=== PATIENT | female | born 1990 | race American Indian/Alaskan Native ===

== ENCOUNTER 2018-12-21 14:34 | Outpatient (CLI) | payer MEDICAID ==
[2018-12-21] MEDS ORDERED: LACTATED RINGERS 500 ML IV ONE (14:49)
[2018-12-21] MEDS ORDERED: ZOFRAN IV ONE (15:16)
[2018-12-21 15:29] LABS: Bacteria,Urine 1+ /HPF (Negative); Bilirubin,Urine NEG (Negative); Blood,Urine NEG (Negative); Color,Urine Yellow (Yellow); Protein,Urine <15 mg/dL mg/dL (Negative); Urobilinogen,Urine < 2.0 mg/dL (<2.0)
[2018-12-21 15:49] LABS: Hematocrit 34.5 % (30.3-42.9); Hemoglobin 11.2 gm/dl (10.1-14.3); Mean Corpuscular HGB Conc 33 % (30-34); Mean Corpuscular Volume 86 fl (79-97); Platelet Count 214 K/mm3 (140-440); Red Cell Distribution Width 13.7 % (13.2-15.2)
[2018-12-21 16:07] LABS: Alanine Aminotransferase 9 units/L (7-56); Uric Acid 5.1 mg/dL (3.5-7.6)
[2018-12-21] MEDS ORDERED: TYLENOL PO PRN ×2 (16:12→17:32)
[2018-12-21] MEDS ORDERED: COLACE PO PRN (16:12)
[2018-12-21] MEDS ORDERED: ALUM-MAG HYDROX-SIMETH 200-200-20MG/5ML PO PRN (16:12)
--- NOTE | 2018-12-21 16:18 | Event Note ---
Date: 12/21/18 patient came in to triage w/o care, c/o feeling like her b/p is high. pre-e labs normal, b/p 130-150/70-80's. Will admit for observation and 24h urine collection. Dr. Purdy consulted.
[2018-12-21 16:59] LABS: Amphetamine Screen,Urine PRESUMPTIVE NEGATIVE; Benzodiazepines Screen,Urine PRESUMPTIVE NEGATIVE; Cocaine Screen,Urine PRESUMPTIVE NEGATIVE; Methadone Screen,Urine PRESUMPTIVE NEGATIVE; Opiate Screen,Urine PRESUMPTIVE NEGATIVE
[2018-12-21] MEDS ORDERED: LACTATED RINGERS 1,000 ML IV SCH ×2 (17:00)
[2018-12-21 17:12] LABS: Cannabinoid Screen,Urine PRESUMPTIVE POSITIVE
[2018-12-21 17:42] VITALS: BP 128/75
--- NOTE | 2018-12-21 18:23 | Event Note ---
Date: 12/21/18 s/w patient by phone d/t possible leaving against medical advice. Explained possible preeclampsia and PTL. Emphasized the importance of admission to complete her assessment. Cervix 12/15/3 per Sonali JENSEN. Preeclampsia explained along with risk for seizure, stroke, brain damage or for her and/or the fetus emphasized, also discussed delivery and complications. She states hospitals are against her beliefs and [facility]. care encouraged. Explained US report is pending at this time. States she does not know what she wants to do at this time. Again encouraged admission to evaluate for preeclampsia and PTL.
--- NOTE | 2018-12-22 06:55 | Ultrasound Report ---
FINAL REPORT EXAM: OB US >= 14 WKS SNGL FETUS HISTORY: NO CARE COMPARISONS: None. FINDINGS: Transabdominal limited 3rd trimester grayscale, color Doppler and M-mode ultrasound A single living intrauterine is present with recorded cardiac activity of 177 beats per min wainwright in cephalic presentation with subjectively normal amniotic fluid volume and amniotic fluid index of approximately 14 cm. The placenta is anterior and homogeneous in appearance. The cervix is not wel l visualized. Biparietal diameter is 8.3 cm Head circumference is 29.9 cm Abdominal circumference is 28 cm Femoral length is 6.1 cm Composite of biometric measurements results estimated gestational age of 32 weeks 4 days and de livery date of 02/11/2019. Limited/partially visualized portions of the anatomy are grossly unremarkable. The skin line ov erlying the spine as well as the brain are not optimally visualized. IMPRESSION: Single living intrauterine with estimated gestational age of 32 weeks 4 days corresponding to delivery date of 02/11/2019. Limited evaluation of the anatomy is grossly unremarkable.
[2018-12-22] MEDS ORDERED: PRENATAL VITAMIN PO SCH (10:00)
[2018-12-22 23:11] LABS: Creatinine,Urine 98.3 mg/dL (0.1-20.0)
[2018-12-22 23:13] LABS: Patient Weight,Urine 167.6 lbs
== END 2018-12-21 18:49 | disposition left against medical advice (07) ==
LOC: TRG 14:34
PROVIDERS: ATTEND Obstetrics & Gynecology
DX: O47.03 False labor before 37 completed weeks of gestation, third trimester (principal); O99.513 Diseases of the respiratory system complicating pregnancy, third trimester; J45.909 Unspecified asthma, uncomplicated; Z3A.33 33 weeks gestation of pregnancy
CPT/HCPCS: 36415; 76805; 80307; 81001; 82565; 83615; 84450; 84460; 84550; 85027; 86850; 86900; 86901; J2405; J7120

== ENCOUNTER 2018-12-21 19:32 | Inpatient (IN) | payer MEDICAID ==
[2018-12-21] MEDS ORDERED: LACTATED RINGERS 1,000 ML ONE (19:59)
[2018-12-21] MEDS ORDERED: COLACE PO PRN (20:29)
[2018-12-21] MEDS ORDERED: TYLENOL PO PRN (20:29)
--- NOTE | 2018-12-21 20:40 | Event Note ---
Date: 12/21/18 Pt returned to L&D after signing out AMA. Pt states she feels "dehydrated and wants IVF." She has continued to have nausea and vomiting. called patient and discussed patient's compliance with care. She states she will allow the nurses to monitor baby, IVF, medication for nausea and will complete 24h urine. Patient states she will stay in the hospital and not leave again. She reports leaving on previous admission due to medical care being "against her culture." Admission orders in EMR. Labs drawn same day but documented under her previous admission.Dr. Purdy is aware of patient's return. +THC noted on UDS. Will continue to monitor.
[2018-12-21] MEDS ORDERED: PHENERGAN PR PRN (20:41)
[2018-12-21] MEDS ORDERED: LACTATED RINGERS 1,000 ML IV SCH (21:00)
[2018-12-21] MEDS ORDERED: AMBIEN PO PRN (21:42)
[2018-12-21] MEDS: LACTATED RINGERS 1,000 ML IV SCH (22:45)
[2018-12-21] MEDS: ZOFRAN IV PRN (23:47)
[2018-12-22] MEDS: ZOFRAN IV PRN (05:06)
[2018-12-22] MEDS: LACTATED RINGERS 1,000 ML IV SCH (05:29)
--- NOTE | 2018-12-22 07:37 | History and Physical Report ---
History of Present Illness Date of examination: 12/22/18 Date of admission: 12/21/18 20:57 Chief complaint: N/V, BALDWIN, elevated BP's History of present illness: See previous notes. Patient states she started having nausea and vomiting yesterday morning with diarrhea, she took her BP and was found to 165/80. On arrival BP's were noted to be 130-150/70-80's. She was admitted to evaluate for Preeclampsia Past History Past Medical History: no pertinent history Past Surgical History: no surgical history DIRECTOR IT History: trichomonas Family/Genetic History: none Social history: other (marijuana) - Obstetrical History : 5 Spontaneous Abortions: 1 Induced : 3 Medications and Allergies Allergies Allergy/AdvReac Type Severity Reaction Status Date / Time aspirin Allergy Hives Verified 12/21/18 22:39 ibuprofen [From Motrin] Allergy Hives Verified 12/11/15 02:21 Penicillins Allergy Hives Verified 12/11/15 02:20 Home Medications Medication Instructions Recorded Confirmed Last Taken Type No Known Home Medications [No 12/21/18 12/21/18 Unknown History Reported Home Medications] Active Meds: Active Medications Acetaminophen (Tylenol) 650 mg PO Q4H PRN PRN Reason: Pain MILD(1-3)/Fever >100.5/BALDWIN Docusate Sodium (Colace) 100 mg PO Q12H PRN PRN Reason: Constipation Lactated Ringer's (Lactated Ringers) 1,000 mls @ 125 mls/hr IV DIRECT FLORENCE Last Admin: 12/22/18 05:29 Dose: 125 mls/hr Documented by: Multivitamins/Iron/Calcium ( Vitamin) 1 each PO QDAY FLORENCE Ondansetron HCl (Zofran) 4 mg IV Q6H PRN PRN Reason: Nausea And Vomiting Last Admin: 12/22/18 05:06 Dose: 4 mg Documented by: Promethazine HCl (Phenergan) [address] Q6H PRN PRN Reason: Nausea And Vomiting Zolpidem Tartrate (Ambien) 10 mg PO QHS PRN PRN Reason: Insomnia Review of Systems All systems: negative Gastrointestinal: abdominal pain, nausea, vomiting, diarrhea - Vital Signs Vital signs: Vital Signs Pulse BP 86 137/73 12/21/18 20:05 12/21/18 20:05 Temp Pulse Resp BP Pulse Ox 98.8 F 98 H 18 118/73 97 12/22/18 03:54 12/22/18 05:07 12/22/18 03:54 12/22/18 05:07 12/22/18 05:06 - Physical Exam Breasts: Positive: deferred Cardiovascular: Regular rate Lungs: Positive: Clear to auscultation, Normal air movement Abdomen: Positive: normal appearance, soft. Negative: tenderness, guarding Uterus: Positive: enlarged. Negative: tender Extremities: Positive: edema (2+) Deep Tendon Reflex Grade: Dull/Diminished +1 - Obstetrical FHR: other (pending, patient refused monitoring last pm) Results All other labs normal. Ultrasound: report reviewed Assessment and Plan - Patient Problems (1) Drug use during Current Visit: Yes Status: Acute (2) Elevated blood pressure reading Current Visit: Yes Status: Acute Plan to address problem: complete 24hour urine (3) Nausea and vomiting during Current Visit: Yes Status: Acute Plan to address problem: Gastroeneritis, mostly viral, denies recent travel IVF hydration Antiemetics (4) No care in current in third trimester Current Visit: Yes Status: Acute Plan to address problem: encouraged PNC
--- NOTE | 2018-12-22 07:50 | Progress Note ---
Assessment and Plan Patient resting in bed, RN at bedside. Patient reports feeling a little better since admission. 24 hour urine still in progress. Patient is currently being monitored via external TOCO and US, RN adjusting US. Pt reports frequent diarrhea and continued nausea, but that the vomiting has decreased. Pt notified of new orders for reglan, D5LR, and stool culture to be sent per Dr. Purdy. Patient verbalizes understanding of current POC and agrees. Patient denies any contractions, vaginal bleeding, or leaking of fluid vaginally. PIH assessment WNL. Pt encouraged to ask questions, all questions answered. Will continue to monitor and continue current POC. Subjective - Subjective Date of service: 12/22/18 Patient reports: movement normal, no new complaints, no loss of fluid, no vaginal bleeding, no contractions Objective - Vital Signs Vital Signs: Vital Signs - 12hr 12/21/18 12/21/18 12/21/18 20:05 21:20 21:49 Temperature 98.8 F Pulse Rate 86 86 105 H Respiratory 20 Rate Blood Pressure 137/73 Blood Pressure 137/73 [Left] O2 Sat by Pulse 98 Oximetry 12/21/18 12/21/18 12/21/18 21:54 21:59 22:04 Temperature Pulse Rate 100 H 102 H 100 H Respiratory Rate Blood Pressure Blood Pressure [Left] O2 Sat by Pulse 96 97 97 Oximetry 12/21/18 12/21/18 12/21/18 22:09 22:18 22:33 Temperature Pulse Rate 103 H 103 H 84 Respiratory Rate Blood Pressure Blood Pressure [Left] O2 Sat by Pulse 97 98 99 Oximetry 12/21/18 12/21/18 12/21/18 22:35 22:38 22:42 Temperature 99.8 F H Pulse Rate 97 H 97 H Respiratory 18 Rate Blood Pressure Blood Pressure [Left] O2 Sat by Pulse 99 86 Oximetry 12/21/18 12/21/18 12/21/18 22:44 22:49 22:54 Temperature Pulse Rate 87 91 H 102 H Respiratory Rate Blood Pressure 132/72 Blood Pressure [Left] O2 Sat by Pulse 95 99 98 Oximetry 12/21/18 12/21/18 12/21/18 22:59 23:04 23:13 Temperature Pulse Rate 92 H 106 H 99 H Respiratory Rate Blood Pressure Blood Pressure [Left] O2 Sat by Pulse 99 100 100 Oximetry 0212/21/18 12/21/18 23:18 23:23 23:28 Temperature Pulse Rate 99 H 118 H 98 H Respiratory Rate Blood Pressure Blood Pressure [Left] O2 Sat by Pulse 100 99 99 Oximetry 12/21/18 12/21/18 12/21/18 23:44 23:46 23:49 Temperature Pulse Rate 92 H 93 H 85 Respiratory Rate Blood Pressure 122/63 Blood Pressure [Left] O2 Sat by Pulse 100 100 Oximetry 12/21/18 12/21/18 12/22/18 23:54 23:59 00:04 Temperature Pulse Rate 96 H 97 H 95 H Respiratory Rate Blood Pressure Blood Pressure [Left] O2 Sat by Pulse 100 99 99 Oximetry 12/22/18 12/22/18 12/22/18 00:09 00:14 00:20 Temperature Pulse Rate 87 95 H 107 H Respiratory Rate Blood Pressure Blood Pressure [Left] O2 Sat by Pulse 100 99 100 Oximetry 12/22/18 12/22/18 12/22/18 00:25 00:30 00:32 Temperature Pulse Rate 89 91 H Respiratory Rate Blood Pressure Blood Pressure [Left] O2 Sat by Pulse 100 100 94 Oximetry 12/22/18 12/22/18 12/22/18 00:48 00:53 00:58 Temperature Pulse Rate 98 H 92 H 95 H Respiratory Rate Blood Pressure Blood Pressure [Left] O2 Sat by Pulse 100 100 99 Oximetry 12/22/18 12/22/18 12/22/18 01:03 01:08 01:13 Temperature Pulse Rate 87 91 H 93 H Respiratory Rate Blood Pressure Blood Pressure [Left] O2 Sat by Pulse 100 100 99 Oximetry 12/22/18 12/22/18 12/22/18 01:18 01:23 01:28 Temperature Pulse Rate 92 H 105 H 92 H Respiratory Rate Blood Pressure Blood Pressure [Left] O2 Sat by Pulse 100 100 99 Oximetry 12/22/18 12/22/18 12/22/18 01:33 01:38 01:43 Temperature Pulse Rate 94 H 92 H 104 H Respiratory Rate Blood Pressure Blood Pressure [Left] O2 Sat by Pulse 98 99 99 Oximetry 12/22/18 12/22/18 12/22/18 01:48 01:53 02:05 Temperature Pulse Rate 97 H 102 H 88 Respiratory Rate Blood Pressure 125/82 Blood Pressure [Left] O2 Sat by Pulse 100 99 Oximetry 12/22/18 12/22/18 12/22/18 02:45 03:52 03:54 Temperature 98.8 F Pulse Rate 90 100 H Respiratory 18 Rate Blood Pressure 116/59 115/57 Blood Pressure [Left] O2 Sat by Pulse Oximetry 12/22/18 12/22/18 12/22/18 05:06 05:07 07:36 Temperature Pulse Rate 102 H 98 H 102 H Respiratory Rate Blood Pressure 118/73 116/79 Blood Pressure [Left] O2 Sat by Pulse 97 Oximetry - Exam Breasts: normal Cardiovascular: Regular rate, Normal S1, Normal S2 Lungs: Clear to auscultation Abdomen: Present: normal appearance, soft. Absent: distention, tenderness Uterus: Present: normal FHR: auscultation normal Uterine Contraction Pattern: Absent Extremities: normal Deep Tendon Reflex Grade: Normal +2
[2018-12-22] MEDS ORDERED: D5LR 1,000 ML IV SCH (08:00)
[2018-12-22] MEDS ORDERED: REGLAN IV PRN (08:00)
[2018-12-22] MEDS: D5LR 1,000 ML IV SCH ×2 (08:01→18:08)
[2018-12-22] MEDS ORDERED: REGLAN PO PRN (08:30)
[2018-12-22] MEDS ORDERED: PRENATAL VITAMIN PO SCH (10:00)
--- NOTE | 2018-12-23 07:50 | Discharge Summary ---
Providers - Providers Date of Admission: 12/21/18 20:57 Date of discharge: 12/23/18 (desires d/c home) Attending physician: KYLE CASTELLANOS 12/21/18 Consult to Case Management [CONS] Routine Services Needed at Discharge: Correspondence Representative Comment:: no care, third trimester Primary care physician: KYLE CASTELLANOS Hospitalization Reason for admission: nausea/vomiting, elevated b/p reading Condition: Good Pertinent studies: pre-e labs normal, 24h urine 260. UDS + THC Hospital course: IV hydration and control of nausea and vomiting, likely stomach virus, complicated by no care and pt's lack of cooperation. Disposition: DC-01 TO HOME OR SELFCARE - Discharge Diagnoses (1) Drug use during Status: Acute (2) Elevated blood pressure reading Status: Acute Comment: normal pre-e labs, b/p readings now 115-135/50's-70's over the last 24hrs. (3) Nausea and vomiting during Status: Acute Comment: resolved (4) No care in current in third trimester Status: Acute Comment: pt states she has first appointment with research laboratory specialist 01/09/19 (states she retained her services last week but has not been seen). She does not know her name or where her office/clinic is located. Core Measure Documentation - Palliative Care Palliative Care/ Comfort Measures: Not Applicable - Core Measures Any of the following diagnoses?: none Exam - Constitutional Vitals: Temp Pulse Resp BP Pulse Ox 98.1 F 77 18 117/67 100 12/23/18 06:13 12/23/18 06:13 12/23/18 06:13 12/23/18 06:13 12/23/18 06:13 General appearance: Present: no acute distress, well-nourished - EENT Eyes: Present: PERRL ENT: hearing intact, clear oral mucosa - Neck Neck: Present: supple, normal ROM - Respiratory Respiratory effort: normal Respiratory: bilateral: CTA - Cardiovascular Heart Sounds: Present: S1 & S2. Absent: rub, click - Extremities Extremities: pulses symmetrical, No edema Peripheral Pulses: within normal limits - Abdominal General gastrointestinal: Present: soft, non-tender, non-distended, normal bowel sounds Female genitourinary: Present: normal - Integumentary Integumentary: Present: clear, warm, dry - Musculoskeletal Musculoskeletal: gait normal, strength equal bilaterally - Psychiatric Psychiatric: appropriate mood/affect, intact judgment & insight - Neurologic Neurologic: CNII-XII intact, moves all extremities Plan Activity: no restrictions Diet: regular Follow up with: KYLE CASTELLANOS MD [Primary Care Provider] - 7 Days (Please call [phone] to make appointment for routine care.)
[2018-12-23 07:54] VITALS: BP 127/71
== END 2018-12-23 08:55 | disposition home or self-care (01) | DRG 781 ==
LOC: TRG 19:32 → LD 19:59 → TRG 20:57 → LD 20:57
PROVIDERS: ADMIT Obstetrics & Gynecology; ATTEND Obstetrics & Gynecology
DX: O99.323 Drug use complicating pregnancy, third trimester (principal); O21.9 Vomiting of pregnancy, unspecified; F12.90 Cannabis use, unspecified, uncomplicated; O99.613 Diseases of the digestive system complicating pregnancy, third trimester; K52.9 Noninfective gastroenteritis and colitis, unspecified; Z3A.33 33 weeks gestation of pregnancy; Z88.6 Allergy status to analgesic agent; Z88.0 Allergy status to penicillin
CPT/HCPCS: 36415; 76805; 80307; 81001; 82565; 82570; 82575; 83615; 84156; 84450; 84460; 84550; 85027; 86850; 86900; 86901; 87045; G0378; J2405; J2765; J7120; J7121

== ENCOUNTER 2019-06-29 22:28 | Emergency (ER) | payer MEDICAID ==
[2019-06-29 22:50] VITALS: BP 120/76
[2019-06-29] MEDS ORDERED: XYLOCAINE 2% INFILTRATI ONE ×2 (23:30→23:33)
[2019-06-30 00:02] LABS: HCG Qualitative,Urine Negative (Negative)
--- NOTE | 2019-06-30 00:16 | Emergency Department Report ---
ED Laceration HPI - HPI Chief Complaint: Wound/Laceration Stated Complaint: FALL/HEAD LAC Time Seen by Provider: 06/29/19 23:12 Occurred When: Today Location: Head Severity: mild Tetanus Status: Up to Date Laceration Symptoms: Yes Pain, No Foreign Body Sensation, No Weakness Other History: Patient is a 28-year-old healthy looking female who presents to ED complaining of facial lot to the catholic. Patient states that earlier today she was walking and accidentally tripped and fell and hit her head on concrete. She denies loss of consciousness but is also complaining of right-sided rib pain and pain with inhalation. Patient denies nausea, vomiting, dizziness or headache ED Review of Systems ROS: Stated complaint: FALL/HEAD LAC Other details as noted in HPI Comment: All other systems reviewed and negative ED Past Medical Hx - Past Medical History Hx Hypertension: No Hx Congestive Heart Failure: No Hx Diabetes: No Hx Deep Vein Thrombosis: No Hx Renal Disease: No Hx Sickle Cell Disease: No Hx Seizures: No Hx Asthma: Yes (as a child) Hx COPD: No Hx HIV: No - Surgical History Additional Surgical History: 3X - Social History Smoking Status: Never Smoker Substance Use Type: None - Medications Home Medications: Home Medications Medication Instructions Recorded Confirmed Last Taken Type No Known Home Medications [No 12/21/18 12/21/18 Unknown History Reported Home Medications] Laceration Physical Exam - Exam General: Vital signs noted. No distress. Alert and acting appropriately. Wound Length (cm): 1 Laceration Location: Head Laceration Exam: Yes Normal Distal CMS, No Foreign Body, No Exposed Tendon, Vessel, or Nerve, No Tendon Injury ED Course Vital Signs 06/29/19 22:42 Temperature 98.1 F Pulse Rate 82 Respiratory 18 Rate Blood Pressure 120/76 O2 Sat by Pulse 100 Oximetry - Laceration /Wound Repair Left Face Wound Location: face Wound Length (cm): 1 Wound's Depth, Shape: superficial, linear Wound Explored: clean Betadine Prep?: Yes Anesthesia: 1% Lidocaine Volume Anesthetic (ccs): 1 Wound Repaired With: sutures, Steri-strips Suture Size/Type: 4:0, proline Sterile Dressing Applied?: Yes ED Medical Decision Making - Radiology Data Radiology results: report reviewed, image reviewed CT head without contrast INDICATION : FACIAL/HEAD PAIN FROM TRAUMATIC FALL. TECHNIQUE: Axial imaging performed from the skull apex through the skull base without the use of contrast. All CT scans at this location are performed using CT dose reduction for ALARA by means of automated exposure control. COMPARISON: None FINDINGS: Parenchyma: No acute intracranial hemorrhage or parenchymal abnormality. Ventricles: Ventricles are normal in size and appear symmetric. Soft tissues: Soft tissues including the orbits appear normal. Bones: No acute osseous abnormality. Sinuses: Sinuses and mastoid air cells are clear. IMPRESSION: No acute abnormality. Signer Name: Ata Butts MD Signed: 06/30/2019 12:15 AM Workstation Name: [id number] Transcribed By: ROBERT Dictated By: Ata Butts MD Electronically Authenticated By: Ata Butts MD Signed Date/Time: 06/30/[address] chest without contrast INDICATION : Acute generalized right rib pain. TECHNIQUE: Axial imaging performed through the chest without the use of intravenous contrast. All CT scans at this location are performed using CT dose reduction for ALARA by means of automated exposure control. COMPARISON: None FINDINGS: No acute osseous abnormality identified. No significant DJD in the spine. The heart and great vessels appear unremarkable with no pathologic mediastinal adenopathy. Limited imaging of the upper abdomen shows nothing acute. The lungs are clear. IMPRESSION: No acute abnormality. Clear lungs. Signer Name: Ata Butts MD Signed: 06/30/2019 12:17 AM Workstation Name: [id number] Transcribed By: ROBERT Dictated By: Ata Butts MD Electronically Authenticated By: Ata Butts MD Signed Date/Time: 06/30/19 0017 - Medical Decision Making 28-year-old female presents with a laceration from fall injury. CT of the facial bones, head and chest shows no acute fracture or injuries History report above Laceration was repaired without any complication. Patient tolerated procedure well Discuss with patient to return to the 7-10 days for suture removal. Vital signs are normal she is in no acute distress. Critical care attestation.: If time is entered above; I have spent that time in minutes in the direct care of this critically ill patient, excluding procedure time. ED Disposition Clinical Impression: Fall injury while running, Forehead laceration Disposition: - TO HOME OR SELFCARE Is pt being admited?: No Does the pt Need Aspirin: No Condition: Stable Instructions: Suture Care (ED), Laceration (ED) Additional Instructions: Make sure to follow up with the primary care physician as discussed. Return to ED in 7-10 days for suture removal If you have any worsening symptoms or develop new symptoms please return to ED immediately. Referrals: TED PAYNE MD [Primary Care Provider] - 3-5 Days Forms: Work/School Release Form(ED) Time of Disposition: 02:00
--- NOTE | 2019-06-30 00:20 | Cat Scan Report ---
CT head without contrast INDICATION : FACIAL/HEAD PAIN FROM TRAUMATIC FALL. TECHNIQUE: Axial imaging performed from the skull apex through the skull base without the use of con trast. All CT scans at this location are performed using CT dose reduction for ALARA by means of aut omated exposure control. COMPARISON: None FINDINGS: Parenchyma: No acute intracranial hemorrhage or parenchymal abnormality. Ventricles: Ventricles are normal in size and appear symmetric. Soft tissues: Soft tissues including the orbits appear normal. Bones: No acute osseous abnormality. Sinuses: Sinuses and mastoid air cells are clear. IMPRESSION: No acute abnormality. Signer Name: Aat Butts MD Signed: 06/30/2019 12:15 AM Workstation Name: [id number]
--- NOTE | 2019-06-30 00:21 | Cat Scan Report ---
CT chest without contrast INDICATION : Acute generalized right rib pain. TECHNIQUE: Axial imaging performed through the chest without the use of intravenous contrast. All C T scans at this location are performed using CT dose reduction for ALARA by means of automated exposu re control. COMPARISON: None FINDINGS: No acute osseous abnormality identified. No significant DJD in the spine. The heart and great vessels appear unremarkable with no pathologic mediastinal adenopathy. Limited im aging of the upper abdomen shows nothing acute. The lungs are clear. IMPRESSION: No acute abnormality. Clear lungs. Signer Name: Ata Butts MD Signed: 06/30/2019 12:17 AM Workstation Name: [id number]
--- NOTE | 2019-06-30 00:35 | Cat Scan Report ---
CT maxillofacial without contrast INDICATION : FACIAL/HEAD PAIN FROM TRAUMATIC FALL. TECHNIQUE: Axial imaging performed through the face with reconstructed images also reviewed. All CT scans at this location are performed using CT dose reduction for ALARA by means of automated exposur e control. COMPARISON: CT head from today FINDINGS: There is a small soft tissue laceration over the left lateral periorbital region with asso ciated mild soft tissue swelling but no radiopaque foreign body is identified. There is likewise no a cute fracture. Sinuses and mastoid air cells are clear. The globes are intact. IMPRESSION: Left periorbital soft tissue injury as above with no acute fracture identified. Signer Name: Ata Butts MD Signed: 06/30/2019 12:30 AM Workstation Name: [id number]
== END 2019-06-30 02:15 | disposition home or self-care (01) ==
LOC: ED 22:28
DX: S01.81XA Laceration without foreign body of other part of head, initial encounter (principal); R07.81 Pleurodynia; J45.909 Unspecified asthma, uncomplicated; W01.0XXA Fall on same level from slipping, tripping and stumbling without subsequent striking against object, initial encounter; Y93.89 Activity, other specified; Y92.89 Other specified places as the place of occurrence of the external cause; Y99.8 Other external cause status
CPT/HCPCS: 70450; 70486; 71250; 81025

== ENCOUNTER 2019-07-05 14:52 | Emergency (ER) | payer MEDICAID ==
[2019-07-05 14:59] VITALS: BP 108/53
--- NOTE | 2019-07-05 15:11 | Emergency Department Report ---
Suture/Staple Removal - [facility] Chief Complaint: Laceration/Recheck/Suture Stated Complaint: SUTURE REMOVAL Time Seen by Provider: 07/05/19 15:11 When Sutures or Kaila Placed: 5-7 Days Ago Wound Location: left eyebrow ED Review of Systems ROS: Stated complaint: SUTURE REMOVAL Other details as noted in HPI Constitutional: denies: chills, fever Eyes: denies: eye pain, eye discharge, vision change ENT: denies: ear pain, throat pain Respiratory: denies: cough, shortness of breath, wheezing Cardiovascular: denies: chest pain, palpitations Endocrine: no symptoms reported Gastrointestinal: denies: abdominal pain, nausea, diarrhea Genitourinary: denies: urgency, dysuria, discharge Musculoskeletal: denies: back pain, joint swelling, arthralgia Skin: denies: rash, lesions Neurological: denies: headache, weakness, paresthesias Psychiatric: denies: anxiety, depression Hematological/Lymphatic: denies: easy bleeding, easy bruising ED Past Medical Hx - Past Medical History Hx Hypertension: No Hx Congestive Heart Failure: No Hx Diabetes: No Hx Deep Vein Thrombosis: No Hx Renal Disease: No Hx Sickle Cell Disease: No Hx Seizures: No Hx Asthma: Yes (as a child) Hx COPD: No Hx HIV: No - Surgical History Additional Surgical History: 3X - Social History Smoking Status: Never Smoker Substance Use Type: None - Medications Home Medications: Home Medications Medication Instructions Recorded Confirmed Last Taken Type No Known Home Medications [No 12/21/18 12/21/18 Unknown History Reported Home Medications] Suture Removal Exam - Exam General: Vital signs noted. No distress. Alert and acting appropriately. Wound: No Pathologic Erythema, No Tenderness, No Drainage, No Pus, No Wound Dehiscence Other Systems: All other systems reviewed and are unremarkable. ED Course Vital Signs 07/05/19 14:58 Temperature 98.0 F Pulse Rate 68 Respiratory 16 Rate Blood Pressure 108/53 O2 Sat by Pulse 100 Oximetry - Reevaluation(s) Reevaluation #1: 07/05/19 15:17 Patient is speaking in full sentences with no signs of distress noted. ED Recheck MDM - Medical Decision Making Running suture removed. Patient tolerated well. Well healing. Patient was instructed to Follow-up with a primary care doctor in 3-5 days or if symptoms worsen and continue return to emergency room as soon as possible. At time of discharge, the patient does not seem toxic or ill in appearance. No acute signs of distress noted. Patient agrees to discharge treatment plan of care. No further questions noted by the patient. Critical care attestation.: If time is entered above; I have spent that time in minutes in the direct care of this critically ill patient, excluding procedure time. ED Disposition Clinical Impression: Visit for suture removal Disposition: - TO HOME OR SELFCARE Is pt being admited?: No Does the pt Need Aspirin: No Condition: Stable Instructions: Suture Removal (ED) Additional Instructions: Follow-up with a primary care doctor in 3-5 days or if symptoms worsen and continue return to emergency room as soon as possible. Referrals: PRIMARY CARE, [Referring] - 3-5 Days FEI RILEY MD [Staff Physician] - 3-5 Days [facility] [Outside] - 3-5 Days [facility] [Outside] - 3-5 Days Forms: Work/School Release Form(ED)
== END 2019-07-05 15:25 | disposition home or self-care (01) ==
LOC: ED 14:52
DX: S01.112D Laceration without foreign body of left eyelid and periocular area, subsequent encounter (principal); J45.909 Unspecified asthma, uncomplicated; W26.8XXD Contact with other sharp object(s), not elsewhere classified, subsequent encounter

== ENCOUNTER 2019-09-20 04:50 | Emergency (ER) | payer MEDICAID ==
[2019-09-20 06:07] LABS: Basophils % (Auto) 0.6 % (0.0-1.8); Eosinophils # (Auto) 0.2 K/mm3 (0.0-0.4); Eosinophils % (Auto) 3.5 % (0.0-4.3); Hematocrit 40.2 % (30.3-42.9); Hemoglobin 12.9 gm/dl (10.1-14.3); Lymphocytes # (Auto) 1.4 K/mm3 (1.2-5.4); Lymphocytes % (Auto) 25.7 % (13.4-35.0); Mean Corpuscular HGB Conc 32 % (30-34); Mean Corpuscular Volume 85 fl (79-97); Monocytes # (Auto) 0.3 K/mm3 (0.0-0.8); Monocytes % (Auto) 4.8 % (0.0-7.3); Platelet Count 254 K/mm3 (140-440); Red Blood Count 4.72 M/mm3 (3.65-5.03); Red Cell Distribution Width 14.9 % (13.2-15.2)
[2019-09-20 06:26] LABS: Alanine Aminotransferase 10 units/L (7-56); Albumin 4.7 g/dL (3.9-5); BUN/Creatinine Ratio 14; Blood Urea Nitrogen 11 mg/dL (7-17); Calcium 9.9 mg/dL (8.4-10.2); Hemolysis Index 3
--- NOTE | 2019-09-20 06:45 | Emergency Department Report ---
HPI - General Chief Complaint: Abdominal Pain Time Seen by Provider: 09/20/19 06:34 - HPI HPI: 29-year-old -[place] female presents to the emergency department with the complaints of some burning to her mid abdomen, some pelvic pain, some vaginal spotting, and now some nausea, vomiting and diarrhea. Patient vomited a few hours ago prior to presentation but denies any current nausea. She does have some loose watery stool. The patient gave about 8 months ago and says that she does not have a regular menstrual cycle but she did have something closer to a first period after delivery on Aug 29. She has had some mild vaginal spotting over the past 3 days. She denies any discharge, dysuria, fever. She denies any past medical history. She has not taken anything for her symptoms prior to presentation. She goes to [facility] care for [facility]. ED Past Medical Hx - Past Medical History Previous Medical History?: Yes Hx Hypertension: No Hx Congestive Heart Failure: No Hx Diabetes: No Hx Deep Vein Thrombosis: No Hx Renal Disease: No Hx Sickle Cell Disease: No Hx Seizures: No Hx Asthma: Yes (as a child) Hx COPD: No Hx HIV: No - Surgical History Past Surgical History?: Yes Additional Surgical History: 3X. wisdom teeth - Social History Smoking Status: Current Every Day Smoker Substance Use Type: None - Medications Home Medications: Home Medications Medication Instructions Recorded Confirmed Last Taken Type Ondansetron [Zofran Odt] 4 mg PO Q8HR PRN #15 tab.[email or web address] 09/20/19 Unknown Rx ED Review of Systems ROS: Stated complaint: ABD PAIN VAG BLEEDING VOMITING LOOSE STOOL Other details as noted in HPI Comment: All other systems reviewed and negative Constitutional: denies: chills, fever Eyes: denies: eye pain, vision change ENT: denies: ear pain, throat pain Respiratory: denies: cough, shortness of breath Cardiovascular: denies: chest pain, palpitations Gastrointestinal: abdominal pain, nausea, vomiting, diarrhea Genitourinary: abnormal menses. denies: dysuria, discharge Musculoskeletal: denies: back pain, arthralgia Skin: denies: rash, lesions Neurological: denies: headache, weakness Physical Exam - Physical Exam Physical Exam: GENERAL: The patient is well-developed well-nourished. HENT: Normocephalic. Atraumatic. Patient has moist mucous membranes. EYES: Extraocular motions are intact. NECK: Supple. Trachea is midline. CHEST/LUNGS: Clear to auscultation. There is no respiratory distress noted. HEART/CARDIOVASCULAR: Regular. There is no tachycardia. There is no murmur. ABDOMEN: Abdomen is soft. Mild lower abdominal tenderness to palpation. No guarding. Patient has normal bowel sounds. There is no abdominal distention. SKIN: Skin is warm and dry. NEURO: The patient is awake, alert, and oriented. The patient is cooperative. Normal speech. MUSCULOSKELETAL: There is no tenderness or deformity. There is no evidence of acute injury. ED Medical Decision Making - Lab Data Result diagrams: 09/20/19 05:01 09/20/19 05:01 - Radiology Data Radiology results: report reviewed, image reviewed interpreted by me: Abdominal x-ray shows nonspecific nonobstructive bowel gas ULTRASOUND PELVIS DUPLEX DOPPLER COMPLETE ULTRASOUND TRANSVAGINAL HISTORY: pelvic pain. TECHNIQUE: Grayscale transabdominal and transvaginal ultrasound w ith color and spectral Doppler imaging performed. COMPARISON: None FINDINGS: The uterus is anteverted and measures 8.0 x 3.5 x 4.5 cm. No uterine mass is detected. The endometrial stripe measures 2 mm. Normal cervix. The right ovary measures 3.9 x 1.9 x 2.4 cm. A 1.8 x 0.8 cm cyst is identified in the right ovary. The left ovary is unremarkable measuring 3.2 x 1.1 x 1.4 cm. No pelvic fluid collection. Spectral Doppler waveforms demonstrate arterial flow to both ovaries. IMPRESSION: 1.8 x 0.8 cm simple appearing right ovarian cyst. - Medical Decision Making This patient presents with some nonspecific abdominal burning, some nausea, vomiting and diarrhea, and some pelvic discomfort. Patient's labs are unremarkable including CBC, metabolic panel, urinalysis and the patient is not . Abdominal x-ray shows nonspecific nonobjective bowel gas. T ransvaginal ultrasound shows a small right ovarian cyst. The patient has not had any further nausea and vomiting while in the emergency department and I do not believe that she has had any further bowel movements or diarrhea. Vital signs stable throughout her ED course including being afebrile. She appears safe for discharge home at this time. She has been instructed to follow-up with primary care physician and [facility]. She'll be given a prescription for Zofran ODT. She will return to the ER with any worsening of her symptoms or any acute distress. - Differential Diagnosis viral syndrome, dysfunction uterine bleeding, fibroids, ovarian cyst, colit Critical Care Time: No Critical care attestation.: If time is entered above; I have spent that time in minutes in the direct care of this critically ill patient, excluding procedure time. ED Disposition Clinical Impression: Dehydration, Dysfunctional uterine bleeding Ovarian cyst Qualifiers: Laterality: right Qualified Code(s): N83.201 - Unspecified ovarian cyst, right side Nausea & vomiting Qualifiers: Vomiting type: unspecified Vomiting Intractability: non-intractable Qualified Code(s): R11.2 - Nausea with vomiting, unspecified Diarrhea Qualifiers: Diarrhea type: unspecified type Qualified Code(s): R19.7 - Diarrhea, unspecified Disposition: DC- TO HOME OR SELFCARE Is pt being admited?: No Condition: Stable Instructions: Dysfunctional Uterine Bleeding (ED), Ovarian Cyst (ED), Dehydration (ED), Acute Nausea and Vomiting (ED), Acute Diarrhea (ED), Abdominal Pain (ED) Additional Instructions: Please follow-up with your [facility]ATOR and a primary care physician. Increase your oral rehydration. Return to the emergency Department with any worsening of your symptoms or any acute distress. Prescriptions: Ondansetron [Zofran Odt] 4 mg PO Q8HR PRN #15 tab.rapdis PRN Reason: Nausea Referrals: OBGYN, Your [Other] - 3-5 Days PRIMARY CARE, [Primary Care Provider] - 3-5 Days
[2019-09-20 07:00] VITALS: BP 109/62
--- NOTE | 2019-09-20 07:14 | XRay Report ---
ABDOMEN 2 VIEWS INDICATION / CLINICAL INFORMATION: abd pain. COMPARISON: None available. FINDINGS: TUBES / LINES: None. BOWEL GAS PATTERN: No significant abnormality. FREE AIR / EXTRALUMINAL GAS: None seen. ADDITIONAL FINDINGS: No significant additional findings. LUNGS: Visualized lungs show no significant abnormality. IMPRESSION: 1. No significant abnormality. Signer Name: Nava Sanchez MD Signed: 09/20/2019 7:09 AM Workstation Name: [id number]
[2019-09-20 07:32] LABS: Bacteria,Urine 1+ /HPF (Negative); Bilirubin,Urine NEG (Negative); Blood,Urine MOD (Negative); Color,Urine Yellow (Yellow); Mucus,Urine 3+ /HPF
--- NOTE | 2019-09-20 08:13 | Ultrasound Report ---
ULTRASOUND PELVIS DUPLEX DOPPLER COMPLETE ULTRASOUND TRANSVAGINAL HISTORY: pelvic pain. TECHNIQUE: Grayscale transabdominal and transvaginal ultrasound with color and spectral Doppler imag ing performed. COMPARISON: None FINDINGS: The uterus is anteverted and measures 8.0 x 3.5 x 4.5 cm. No uterine mass is detected. The endometrial stripe measures 2 mm. Normal cervix. The right ovary measures 3.9 x 1.9 x 2.4 cm. A 1.8 x 0.8 cm cyst is identified in the right ovary. The left ovary is unremarkable measuring 3.2 x 1.1 x 1.4 cm. No pelvic fluid collection. Spectral Doppler waveforms demonstrate arterial flow to both ovaries. IMPRESSION: 1.8 x 0.8 cm simple appearing right ovarian cyst. Signer Name: Kang Howell Jr, MD Signed: 09/20/2019 8:09 AM Workstation Name: [id number]
== END 2019-09-20 08:48 | disposition home or self-care (01) ==
LOC: ED 04:50
DX: E86.0 Dehydration (principal); N93.8 Other specified abnormal uterine and vaginal bleeding; N83.201 Unspecified ovarian cyst, right side; R11.2 Nausea with vomiting, unspecified; J45.909 Unspecified asthma, uncomplicated; F17.200 Nicotine dependence, unspecified, uncomplicated; Z88.6 Allergy status to analgesic agent; Z91.018 Allergy to other foods; Z88.5 Allergy status to narcotic agent; Z88.0 Allergy status to penicillin; Z91.040 Latex allergy status
CPT/HCPCS: 36415; 74019; 76830; 80053; 81001; 84703; 85025; 93975; 99284